=== PATIENT | female | born 1970 | race Caucasian/White ===

== ENCOUNTER 2019-09-05 10:26 | Day surgery (SDC) | payer OTHER ==
[~2019-09-05] VITALS: Ht 167.6 cm; Wt 73.5 kg
[~2019-09-05 10:26] MED LIST: MOTRIN; TYLENOL
[2019-09-05] MEDS ORDERED: fentaNYL 0.05 MG/ML VIAL ONE (11:59)
[2019-09-05] MEDS ORDERED: LIDOCAINE 2% 100 MG/5 ML UJET TP ONE (11:59)
[2019-09-05] MEDS ORDERED: fentaNYL 0.05 MG/ML VIAL IVP ONE (12:50)
== END 2019-09-05 13:01 | disposition home or self-care (01) ==
LOC: MDS 10:26 → MTU 10:32 → MDS 13:01
PROVIDERS: ATTEND Internal Medicine Gastroenterology
DX: Z12.11 Encounter for screening for malignant neoplasm of colon (principal); D12.3 Benign neoplasm of transverse colon; E05.90 Thyrotoxicosis, unspecified without thyrotoxic crisis or storm; Z98.890 Other specified postprocedural states; Z79.899 Other long term (current) drug therapy
CPT/HCPCS: 45385; J3010

== ENCOUNTER 2021-05-28 14:55 | Emergency (ER) | payer OTHER ==
[~2021-05-28] VITALS: Ht 170.2 cm; Wt 77.7 kg
[2021-05-28] MEDS ORDERED: IBUPROFEN 600 MG TAB ONE (15:08)
[2021-05-28 15:09] VITALS: BP 120/83
[2021-05-28 17:55] LABS: APPEARANCE,URINE CLEAR (CLEAR); COLOR,URINE YELLOW (YELLOW)
[2021-05-28 17:56] LABS: BLOOD, URINE NEGATIVE (NEGATIVE); UGLUCOSE NEGATIVE (NEGATIVE)
[2021-05-28 17:57] LABS: BILIRUBIN,URINE NEGATIVE (NEGATIVE); LEUKOCYTE ESTERASE ,URINE NEGATIVE (NEGATIVE); NITRITE, URINE NEGATIVE (NEGATIVE)
[2021-05-28] MEDS ORDERED: KETOROLAC 30 MG/ML VIAL IM ONE (18:00)
[2021-05-28] MEDS ORDERED: METH-1681 PO (18:52)
[2021-05-28] MEDS ORDERED: GABA300C PO (18:52)
[2021-05-28] MEDS ORDERED: IBUP-2213 PO (18:52)
[2021-05-28 18:58] VITALS: BP 118/78
== END 2021-05-28 18:59 | disposition home or self-care (01) ==
LOC: MED 14:55
DX: M54.42 Lumbago with sciatica, left side (principal); Z79.899 Other long term (current) drug therapy
CPT/HCPCS: 72110; 81003; 81025; 96372; 99284; J1885